=== PATIENT | male | born 1960 | race Caucasian/White ===

== ENCOUNTER 2024-01-14 23:12 | Emergency (ER) | payer OTHER, SELFPAY ==
[2024-01-14 23:20] VITALS: BP 147/83; PULSE 70; RESP 18; TEMP 36.8; O2SAT 98; BMI 35.9
--- NOTE | 2024-01-14 23:37 | ED_ITS ---
HPI - Extremity Problem 2 General: Chief complaint: Extremity Problem,Nontraumatic Stated complaint: left leg infection Time Seen by Provider: 01/14/24 23:37 History of Present Illness: 63-year-old male patient was started on clindamycin 300 mg 3 times a day for a cellulitis of the right lower leg. Patient comes in due to what he reports as increased redness to the leg. Patient appears nontoxic. Patient appears no acute distress. Patient reports no nausea or vomiting. Patient does report increased pain to the right lower leg. Related Data Home Medications Medication Instructions Recorded Confirmed lisinopril 5 mg tablet 5 mg PO DAILY 01/14/24 01/14/24 Previous Rx's Medication Instructions Recorded clindamycin HCl 300 mg capsule 600 mg (2 x 300 mg) PO Q8H 7 days 01/15/24 #42 caps hydrocodone 5 mg-acetaminophen 325 1 tab PO Q8H PRN pain #6 tabs 01/15/24 mg tablet ketorolac 10 mg tablet 10 mg PO Q6H PRN pain #10 tabs 01/15/24 Allergies Allergy/AdvReac Type Severity Reaction Status Date / Time codeine Allergy ALGY-Difficulty Verified 01/14/24 23:27 Breathing Review of Systems 2 General: Reports: 10 or more systems reviewed and unremarkable except in HPI and below Physical Exam 2 Const: COMMON NORMALS: alert HENMT: COMMON NORMALS: normocephalic HEAD & SCALP: normocephalic Neck/C-Spine: COMMON NORMALS: full ROM Resp: COMMON NORMALS: normal respiratory effort and clear to auscultation bilaterally AUSCULTATION: clear to auscultation bilaterally Cardio: COMMON NORMALS: regular rate RATE: regular rate GI: COMMON NORMALS: Soft to palpation PALPATION: Yes Soft to palpation : COMMON NORMALS: Yes normal external exam Extremity: COMMON NORMALS: normal to inspection Neuro: SENSORIUM/ORIENTATION: Yes alert Skin: COMMON NORMALS: turgor normal GENERAL SKIN EXAM: turgor normal Course 2 Vital Signs: Vital signs: Vital Signs Temperature 98.2 F 01/14/24 23:20 Pulse Rate 70 01/14/24 23:20 Respiratory Rate 18 01/14/24 23:20 Blood Pressure 147/83 01/14/24 23:20 Pulse Oximetry 98 01/14/24 23:20 Oxygen Delivery Me thod Room Air 01/14/24 23:20 MDM - Extremity (Nontraumatic) Medical Decision Making Patient came in today for concerns of redness to the right lower leg that was treated with antibiotics x 2 days. Patient was concerned that his redness was worse. On exam patient appears nontoxic. Patient appears no acute distress. Vital signs are normal. Differential diagnosis includes not limited to cellulitis, wound infection, DVT. Redness is localized to an area of the gaiter region of the lower leg. No swelling is noted to the foot. Patient does have some varicosities in that area. Laboratory values no CBC that is normal, CMP is unremarkable except for some elevated bilirubin. Lactic is normal. Patient was given 900 mg of clindamycin x 1. Patient was increased his dose of clindamycin 600 mg 3 times a day for the next 7 days. Patient was recommended to elevate the leg. And follow-up with primary care for further instructions. Recommend return to the ER for worsening symptoms such as nausea and vomiting, uncontrolled fever or pain. Lab Data 01/15/24 00:09 01/15/24 00:09 Laboratory Results WBC 6.01 10^3/uL (3.29-11.43) 01/15/24 00:09 RBC 4.19 10^6/uL (3.85-5.65) 01/15/24 00:09 Hgb 13.80 g/dL (11.27-16.99) 01/15/24 00:09 Hct 41.4 % (37-53) 01/15/24 00:09 MCV 98.8 fl (82-101) 01/15/24 00:09 MCH 32.9 pg (27-33) 01/15/24 00:09 MCHC 33.3 g/dL (30-55) 01/15/24 00:09 RDW 12.8 % (12.1-15.1) 01/15/24 00:09 Plt Count 81 10^3/cmm (157-399) L 01/15/24 00:09 MPV 11.2 fL (7.4-10.4) H 01/15/24 00:09 Neut % (Auto) 68.9 % 01/15/24 00:09 Lymph % (Auto) 18.1 % 01/15/24 00:09 [place] % (Auto) 11.1 % 01/15/24 00:09 Eos % (Auto) 1.3 % 01/15/24 00:09 Baso % (Auto) 0.3 % 01/15/24 00:09 Neut # (Auto) 4.13 10^3/uL (1.8-7.7) 01/15/24 00:09 Lymph # (Auto) 1.1 10^3/uL (0.8-4.8) 01/15/24 00:09 [place] # (Auto) 0.7 10^3/uL (0.2-0.9) 01/15/24 00:09 Eos # (Auto) 0.1 10^3/uL (0.0-0.8) 01/15/24 00:09 Baso # (Auto) 0.0 10^3/uL (0.0-0.1) 01/15/24 00:09 Nucleated RBC % (auto) 0 % 01/15/24 00:09 Nucleated RBCs # 0.0 /100WBC 01/15/24 00:09 Sodium 140 mmol/L (136-145) 01/15/24 00:09 Potassium 3.9 mmol/L (3.5-5.1) 01/15/24 00:09 Chloride 105 mmol/L (98-107) 01/15/24 00:09 Carbon Dioxide 25 mmol/L (22-29) 01/15/24 00:09 Anion Gap 13.9 (5-19) 01/15/24 00:09 BUN 12 mg/dL (8-23) 01/15/24 00:09 Creatinine 0.8 mg/dL (0.7-1.2) 01/15/24 00:09 GFR Calculation 98.0 mL/min (90-130) 01/15/24 00:09 Glucose 109 mg/dL (65-115) 01/15/24 00:09 Calculated Osmolality 290 mOsm/kg (285-295) 01/15/24 00:09 Lactic Acid 1.3 mmol/L (0.5-2.2) 01/15/24 00:09 Calcium 9.1 mg/dL (8.5-10.5) 01/15/24 00:09 Total Bilirubin 2.4 mg/dL (0.15-1.2) H 01/15/24 00:09 AST 59 U/L (0-40) H 01/15/24 00:09 ALT 41 U/L (0-41) 01/15/24 00:09 Alkaline Phosphatase 135 U/L (40-130) H 01/15/24 00:09 Total Protein 6.9 g/dL (6.6-8.7) 01/15/24 00:09 Albumin 3.5 g/dL (3.5-5.2) 01/15/24 00:09 Globulin 3.4 g/dL (1.3-4.6) 01/15/24 00:09 No radiology studies performed this visit Discharge Plan Discharge Patient Disposition: Home Clinical Impression: Cellulitis of left lower leg Condition: Stable Prescriptions: New clindamycin HCl 300 mg capsule 600 mg PO Q8H 7 Days Qty: 42 0RF hydrocodone-acetaminophen 5-325 mg tablet 1 tab PO Q8H PRN (Reason: pain) Qty: 6 0RF ketorolac 10 mg tablet 10 mg PO Q6H PRN (Reason: pain) Qty: 10 0RF Rx Instructions: maximum total duration of 5 days from all oral, intranasal, or parenteral formulations No Action lisinopril 5 mg Tablet 5 mg PO DAILY Discharge Orders: Discharge ED (Routine); Ordered 01/15/24 Ordered By: Brandon Fisher Discharge Diet: Usual diet Discharge Activity: Increase activity as tolerated Patient Instructions: Cellulitis (ED) Activity Restrictions/Additional Instructions: Rest and elevate leg. Take antibiotic clindamycin 600 mg 3 times a day for the next 7 days. You should start seeing improvement over the next 2 to 3 days. If you start running a fever greater than 100.4, start becoming nauseous and not being able to hold down fluids, or have new concerns return to the ER. Otherwise, follow-up with primary care in 5 days. Coding Level of Care Code ED Coder Operator for Eliot Guajardo
[2024-01-14 23:57] VITALS: BP 189/85; PULSE 71; O2SAT 98
[2024-01-15] MEDS: clindamycin 900 MG/50 ML PREMIX 100 MG IV (00:21)
[2024-01-15 00:27] VITALS: BP 164/124; PULSE 73; O2SAT 98
[2024-01-15 00:30] VITALS: BP 164/124; PULSE 73; O2SAT 98
[2024-01-15 00:35] LABS: Basophils % 0.3 %; Eosinophils # 0.1 10^3/uL (0.0-0.8); Eosinophils % 1.3 %; Hematocrit 41.4 % (37-53); Lymphocytes # 1.1 10^3/uL (0.8-4.8); Lymphocytes % 18.1 %; Mean Corpuscular HGB Conc 33.3 g/dL (30-55); Mean Corpuscular Hemoglobin 32.9 pg (27-33); Mean Corpuscular Volume 98.8 fl (82-101); Mean Platelet Volume 11.2 fL (7.4-10.4); Monocytes # 0.7 10^3/uL (0.2-0.9); Monocytes % 11.1 %; Neutrophils # 4.13 10^3/uL (1.8-7.7); Neutrophils % 68.9 %; Nucleated Red Blood Cells % 0 %; Platelet Count 81 10^3/cmm (157-399); Red Blood Count 4.19 10^6/uL (3.85-5.65); Red Cell Distribution Width 12.8 % (12.1-15.1); White Blood Count 6.01 10^3/uL (3.29-11.43)
[2024-01-15 00:42] LABS: Lactic Sepsis W/Reflex 1.3 mmol/L (0.5-2.2)
[2024-01-15 00:43] LABS: Alanine Aminotransferase 41 U/L (0-41); Albumin Level 3.5 g/dL (3.5-5.2); Alkaline Phosphatase 135 U/L (40-130); Aspartate Amino Transferase 59 U/L (0-40); Blood Urea Nitrogen 12 mg/dL (8-23); Calcium 9.1 mg/dL (8.5-10.5); Carbon Dioxide 25 mmol/L (22-29); Chloride 105 mmol/L (98-107); Creatinine Clr Calc Pharmacy 120.7364; Globulin 3.4 g/dL (1.3-4.6); Glucose 109 mg/dL (65-115); Osmolality Calculated 290 mOsm/kg (285-295); Sodium 140 mmol/L (136-145); Total Bilirubin 2.4 mg/dL (0.15-1.2); Total Protein 6.9 g/dL (6.6-8.7)
[2024-01-15 00:44] LABS: Anion Gap 13.9 (5-19); Potassium 3.9 mmol/L (3.5-5.1)
[2024-01-15] MEDS: tetanus-dipt-pertussis 0.5 mL SDV IM (00:56)
[2024-01-15] MEDS: ketorolac 30 mg/mL INJ 15 MG IVP (00:57)
[2024-01-15 01:00] VITALS: BP 163/76; PULSE 76; O2SAT 98
[2024-01-15] MEDS: HYDROcodone-acetaminophen 5-325 mg Tablet 1 TAB PO (01:13)
[2024-01-15 01:23] VITALS: BP 141/74; PULSE 75; TEMP 36.9; O2SAT 97
== END 2024-01-15 01:28 | disposition home or self-care (01) ==
PROVIDERS: Emergency Provider Nurse Practitioner Family
DX: L03.116 Cellulitis of left lower limb (principal); Z23 Encounter for immunization
CPT/HCPCS: 80053; 83605; 85025; 87040; 87150; 87205; 90471; 90715; 96365; 96375; 99284; J1885; J3490

== ENCOUNTER 2024-01-17 14:43 | Inpatient (IN) | payer OTHER, SELFPAY ==
[2024-01-17] VITALS (8 sets, daily range): BP systolic 140–183; BP diastolic 64–78; PULSE 72–91; RESP 15–18; TEMP 36.4–36.9; O2SAT 94–97; BMI 35.9; BMI 35.6
[2024-01-17 15:36] LABS: Basophils # 0.1 10^3/uL (0.0-0.1); Basophils % 0.8 %; Eosinophils # 0.1 10^3/uL (0.0-0.8); Eosinophils % 0.9 %; Hematocrit 44.9 % (37-53); Lymphocytes # 1.5 10^3/uL (0.8-4.8); Lymphocytes % 19.6 %; Mean Corpuscular HGB Conc 34.3 g/dL (30-55); Mean Corpuscular Hemoglobin 33.3 pg (27-33); Mean Platelet Volume 11.2 fL (7.4-10.4); Monocytes # 0.8 10^3/uL (0.2-0.9); Monocytes % 10.4 %; Neutrophils # 5.33 10^3/uL (1.8-7.7); Neutrophils % 67.9 %; Nucleated Red Blood Cells % 0 %; Platelet Count 123 10^3/cmm (157-399); Red Blood Count 4.63 10^6/uL (3.85-5.65); Red Cell Distribution Width 12.5 % (12.1-15.1); White Blood Count 7.85 10^3/uL (3.29-11.43)
[2024-01-17 15:38] LABS: Erythrocyte Sedimentation Rate 27 mm/hr (0-10)
--- NOTE | 2024-01-17 17:46 | ED_ITS ---
Documented by User: Kishor Perrin DO 01/18/24 06:03 HPI - Extremity Problem 2 General: Chief complaint: Extremity Injury, Lower Stated complaint: pain to left leg Time Seen by Provider: 01/17/24 17:38 History of Present Illness: 61-year-old male with a history of impai red glucose tolerance presents emergency room with complaint of possible sepsis. He was seen today on a telehealth visit they are worried that he may be getting worse. He was seen last week for cellulitis on his left lower leg he was started on clindamycin on an outpatient basis he returned 3 days ago to the ER was given an IV dose of clindamycin to his home blood cultures done at that time grew coag negative staph species. He is not running a fever at this time. He has a normal white count at the last visit. Associated symptoms: Deny chest pain or fever(s) Related Data Home Medications Medication Instructions Recorded Confirmed lisinopril 5 mg tablet 5 mg PO DAILY 01/14/24 01/17/24 Previous Rx's Medication Instructions Recorded clindamycin HCl 300 mg capsule 600 mg (2 x 300 mg) PO Q8H 7 days 01/15/24 #42 caps hydrocodone 5 mg-acetaminophen 325 1 tab PO Q8H PRN pain #6 tabs 01/15/24 mg tablet ketorolac 10 mg tablet 10 mg PO Q6H PRN pain #10 tabs 01/15/24 Allergies Allergy/AdvReac Type Severity Reaction Status Date / Time codeine Allergy ALGY-Difficulty Verified 01/17/24 14:54 Breathing Review of Systems 2 Const: Denies: fever(s) or chills Card: Denies: chest pain Resp: Denies: dyspnea GI: Denies: abdominal pain : Denies: dysuria, urinary frequency or urinary urgency Musc: Denies: neck pain or back pain Skin/Breast: Reports: erythema, skin pain and skin tenderness Physical Exam 2 Const: COMMON NORMALS: no acute distress GENERAL APPEARANCE: cooperative and comfortable ORIENTATION/CONSCIOUSNESS: Yes awake, Yes oriented to person, Yes oriented to place and Yes oriented to time HENMT: COMMON NORMALS: normocephalic, atraumatic and hearing grossly normal bilaterally HEAD & SCALP: normocephalic and atraumatic Resp: COMMON NORMALS: normal respiratory effort, No retractions, No use of accessory muscles and clear to auscultation bilaterally AUSCULTATION: clear to auscultation bilaterally Cardio: COMMON NORMALS: regular rate, regular rhythm and No murmurs present (Cardio) RATE: regular rate RHYTHM: regular rhythm GI: COMMON NORMALS: Soft to palpation and No hepatosplenomegaly present A USCULTATION: Yes normoactive bowel sounds PALPATION: Yes Soft to palpation, No Tenderness to palpation present (GI), No Guarding due to palpation present (GI) and Yes No hepatosplenomegaly present Extremity: COMMON NORMALS: normal to inspection, capillary refill normal, no clubbing, cyanosis or edema, no calf tenderness and no pedal edema Neuro: SENSORIUM/ORIENTATION: Yes oriented to person, Yes oriented to place and Yes oriented to time Skin: OTHER: Mild redness erythema few small pustules noted and is retracted from the lines marked from 3 days ago. No drainage no palpable abscess Course 2 Vital Signs: Vital signs: Vital Signs Temperature 98.1 F 01/18/24 04:00 Pulse Rate 82 01/18/24 05:30 Respiratory Rate 20 H 01/18/24 04:00 Blood Pressure 121/59 01/18/24 04:00 Pulse Oximetry 93 01/18/24 04:00 Oxygen Delivery Me thod Room Air 01/18/24 04:00 MDM - Extremity (Nontraumatic) Medical Decision Making Previous culture 1 of 4 bottles grew out coag negative staph. May be contaminant may be true pathogen will need second set of blood cultures to clear. Clinically appears to be responding to the clindamycin to this point. Care signed out to Dr. Sahni at change of shift. See final notes for diagnosis and disposition. Patient tarted clindamycin 300 mg 3 times a day 5 days ago, 4 days ago was bumped up to 600 mg 3 times a day and the patient also got a 900 mg IV dose. There been getting more painful and more reddened with pustules. Lab work was reviewed, this case was discussed with Dr. Barnard we will place the patient on Vanco and Zosyn get a CT scan of the area to rule out abscess and place the patient inpatient. Lab Data 01/18/24 04:50 01/18/24 04:50 Radiology Impressions Venous Duplex 01/17/24 17:55 IMPRESSION: No sonographic evidence of deep vein thrombosis. Lower Extremity CT 01/17/24 20:27 IMPRESSION: 1. Mild to moderate subcutaneous edema with overlying skin thickening along the anterior aspect of the mid to distal lower leg, compatible with cellulitis. No organized collection. No soft tissue gas. No acute osseous abnormality. 2. Additional findings, as above. Laboratory Results WBC 7.85 10^3/uL (3.29-11.43) 01/17/24 15:14 RBC 4.63 10^6/uL (3.85-5.65) 01/17/24 15:14 Hgb 15.40 g/dL (11.27-16.99) 01/17/24 15:14 Hct 44.9 % (37-53) 01/17/24 15:14 MCV 97.0 fl (82-101) 01/17/24 15:14 MCH 33.3 pg (27-33) H 01/17/24 15:14 MCHC 34.3 g/dL (30-55) 01/17/24 15:14 RDW 12.5 % (12.1-15.1) 01/17/24 15:14 Plt Count 123 10^3/cmm (157-399) L 01/17/24 15:14 MPV 11.2 fL (7.4-10.4) H 01/17/24 15:14 Neut % (Auto) 67.9 % 01/17/24 15:14 Lymph % (Auto) 19.6 % 01/17/24 15:14 [place] % (Auto) 10.4 % 01/17/24 15:14 Eos % (Auto) 0.9 % 01/17/24 15:14 Baso % (Auto) 0.8 % 01/17/24 15:14 Neut # (Auto) 5.33 10^3/uL (1.8-7.7) 01/17/24 15:14 Lymph # (Auto) 1.5 10^3/uL (0.8-4.8) 01/17/24 15:14 [place] # (Auto) 0.8 10^3/uL (0.2-0.9) 01/17/24 15:14 Eos # (Auto) 0.1 10^3/uL (0.0-0.8) 01/17/24 15:14 Baso # (Auto) 0.1 10^3/uL (0.0-0.1) 01/17/24 15:14 Nucleated RBC % (auto) 0 % 01/17/24 15:14 Nucleated RBCs # 0.0 /100WBC 01/17/24 15:14 ESR 27 mm/hr (0-10) H 01/17/24 15:14 Sodium 135 mmol/L (136-145) L 01/17/24 15:14 Potassium 4.4 mmol/L (3.5-5.1) 01/17/24 15:14 Chloride 99 mmol/L (98-107) 01/17/24 15:14 Carbon Dioxide 25 mmol/L (22-29) 01/17/24 15:14 Anion Gap 15.4 (5-19) 01/17/24 15:14 BUN 16 mg/dL (8-23) 01/17/24 15:14 Creatinine 0.9 mg/dL (0.7-1.2) 01/17/24 15:14 GFR Calculation 85.5 mL/min (90-130) L 01/17/24 15:14 Glucose 103 mg/dL (65-115) 01/17/24 15:14 Calculated Osmolality 281 mOsm/kg (285-295) L 01/17/24 15:14 Calcium 9.9 mg/dL (8.5-10.5) 01/17/24 15:14 Total Bilirubin 4.2 mg/dL (0.15-1.2) H 01/17/24 15:14 AST 47 U/L (0-40) H 01/17/24 15:14 ALT 39 U/L (0-41) 01/17/24 15:14 Alkaline Phosphatase 162 U/L (40-130) H 01/17/24 15:14 Total Protein 7.3 g/dL (6.6-8.7) 01/17/24 15:14 Albumin 3.5 g/dL (3.5-5.2) 01/17/24 15:14 Globulin 3.8 g/dL (1.3-4.6) 01/17/24 15:14 Discharge Plan Discharge Patient Disposition: Admitted As Inpatient Admit Provider: Seng Cade Clinical Impression: Cellulitis of left lower leg Condition: Stable Coding Level of Care Code ED Luncheonette Operator for Chg Fwd Documented by User: Cas Sahni DO 01/17/24 20:46 HPI - Extremity Problem 2 General: Chief complaint: Extremity Injury, Lower Stated complaint: pain to left leg Time Seen by Provider: 01/17/24 17:38 Related Data Home Medications Medication Instructions Recorded Confirmed lisinopril 5 mg tablet 5 mg PO DAILY 01/14/24 01/17/24 Previous Rx's Medication Instructions Recorded clindamycin HCl 300 mg capsule 600 mg (2 x 300 mg) PO Q8H 7 days 01/15/24 #42 caps hydrocodone 5 mg-acetaminophen 325 1 tab PO Q8H PRN pain #6 tabs 01/15/24 mg tablet ketorolac 10 mg tablet 10 mg PO Q6H PRN pain #10 tabs 01/15/24 Allergies Allergy/AdvReac Type Severity Reaction Status Date / Time codeine Allergy ALGY-Difficulty Verified 01/17/24 14:54 Breathing Course 2 Vital Signs: Vital signs: Vital Signs Temperature 98.1 F 01/18/24 04:00 Pulse Rate 82 01/18/24 05:30 Respiratory Rate 20 H 01/18/24 04:00 Blood Pressure 121/59 01/18/24 04:00 Pulse Oximetry 93 01/18/24 04:00 Oxygen Delivery Me thod Room Air 01/18/24 04:00 MDM - Extremity (Nontraumatic) Medical Decision Making Care signed out to Dr. Sahni at change of shift. See final notes for diagnosis and disposition. Patient tarted clindamycin 300 mg 3 times a day 5 days ago, 4 days ago was bumped up to 600 mg 3 times a day and the patient also got a 900 mg IV dose. There been getting more painful and more reddened with pustules. Lab work was reviewed, this case was discussed with Dr. Barnard we will place the patient on Vanco and Zosyn get a CT scan of the area to rule out abscess and place the patient inpatient. Lab Data 01/18/24 04:50 01/18/24 04:50 Radiology Impressions Venous Duplex 01/17/24 17:55 IMPRESSION: No sonographic evidence of deep vein thrombosis. Lower Extremity CT 01/17/24 20:27 IMPRESSION: 1. Mild to moderate subcutaneous edema with overlying skin thickening along the anterior aspect of the mid to distal lower leg, compatible with cellulitis. No organized collection. No soft tissue gas. No acute osseous abnormality. 2. Additional findings, as above. Laboratory Results WBC 7.85 10^3/uL (3.29-11.43) 01/17/24 15:14 RBC 4.63 10^6/uL (3.85-5.65) 01/17/24 15:14 Hgb 15.40 g/dL (11.27-16.99) 01/17/24 15:14 Hct 44.9 % (37-53) 01/17/24 15:14 MCV 97.0 fl (82-101) 01/17/24 15:14 MCH 33.3 pg (27-33) H 01/17/24 15:14 MCHC 34.3 g/dL (30-55) 01/17/24 15:14 RDW 12.5 % (12.1-15.1) 01/17/24 15:14 Plt Count 123 10^3/cmm (157-399) L 01/17/24 15:14 MPV 11.2 fL (7.4-10.4) H 01/17/24 15:14 Neut % (Auto) 67.9 % 01/17/24 15:14 Lymph % (Auto) 19.6 % 01/17/24 15:14 [place] % (Auto) 10.4 % 01/17/24 15:14 Eos % (Auto) 0.9 % 01/17/24 15:14 Baso % (Auto) 0.8 % 01/17/24 15:14 Neut # (Auto) 5.33 10^3/uL (1.8-7.7) 01/17/24 15:14 Lymph # (Auto) 1.5 10^3/uL (0.8-4.8) 01/17/24 15:14 [place] # (Auto) 0.8 10^3/uL (0.2-0.9) 01/17/24 15:14 Eos # (Auto) 0.1 10^3/uL (0.0-0.8) 01/17/24 15:14 Baso # (Auto) 0.1 10^3/uL (0.0-0.1) 01/17/24 15:14 Nucleated RBC % (auto) 0 % 01/17/24 15:14 Nucleated RBCs # 0.0 /100WBC 01/17/24 15:14 ESR 27 mm/hr (0-10) H 01/17/24 15:14 Sodium 135 mmol/L (136-145) L 01/17/24 15:14 Potassium 4.4 mmol/L (3.5-5.1) 01/17/24 15:14 Chloride 99 mmol/L (98-107) 01/17/24 15:14 Carbon Dioxide 25 mmol/L (22-29) 01/17/24 15:14 Anion Gap 15.4 (5-19) 01/17/24 15:14 BUN 16 mg/dL (8-23) 01/17/24 15:14 Creatinine 0.9 mg/dL (0.7-1.2) 01/17/24 15:14 GFR Calculation 85.5 mL/min (90-130) L 01/17/24 15:14 Glucose 103 mg/dL (65-115) 01/17/24 15:14 Calculated Osmolality 281 mOsm/kg (285-295) L 01/17/24 15:14 Calcium 9.9 mg/dL (8.5-10.5) 01/17/24 15:14 Total Bilirubin 4.2 mg/dL (0.15-1.2) H 01/17/24 15:14 AST 47 U/L (0-40) H 01/17/24 15:14 ALT 39 U/L (0-41) 01/17/24 15:14 Alkaline Phosphatase 162 U/L (40-130) H 01/17/24 15:14 Total Protein 7.3 g/dL (6.6-8.7) 01/17/24 15:14 Albumin 3.5 g/dL (3.5-5.2) 01/17/24 15:14 Globulin 3.8 g/dL (1.3-4.6) 09/30/24 15:14 All radiology interpretation(s) finalized by discharge Discharge Plan Discharge Patient Disposition: Admitted As Inpatient Admit Provider: Seng Cade Clinical Impression: Cellulitis of left lower leg Condition: Stable Coding Level of Care Code ED Luncheonette Operator for Eliot Guajardo
--- NOTE | 2024-01-17 17:55 | USR_ITS ---
PROCEDURE INFORMATION: Exam: US Duplex Left Lower Extremity Veins, Limited Exam date and time: 01/17/2024 6:44 PM Age: 63 years old Clinical indication: Edema, localized; Lower extremity, left; Additional info: Leg pain swelling TECHNIQUE: Imaging protocol: Real-time duplex ultrasound of the left extremity with 2-D maddox scale, color Doppler flow and spectral waveform analysis including responses to compression and other maneuvers (when performed) with image documentation. Limited exam focused on the left lower extremity veins. COMPARISON: No relevant prior studies available. FINDINGS: Left deep veins: Unremarkable. The common femoral, femoral, proximal profunda femoral, popliteal, posterior tibial and peroneal veins are patent without thrombus. Normal compressibility, augmentation response and Doppler waveforms. Superficial veins: Greater saphenous vein at the saphenofemoral junction is patent without thrombus. Soft tissues: Unremarkable. US/CV venous duplex [facility] [id number] IMPRESSION: No sonographic evidence of deep vein thrombosis.
[2024-01-17 18:14] LABS: Alanine Aminotransferase 39 U/L (0-41); Albumin Level 3.5 g/dL (3.5-5.2); Alkaline Phosphatase 162 U/L (40-130); Anion Gap 15.4 (5-19); Aspartate Amino Transferase 47 U/L (0-40); Blood Urea Nitrogen 16 mg/dL (8-23); Calcium 9.9 mg/dL (8.5-10.5); Carbon Dioxide 25 mmol/L (22-29); Chloride 99 mmol/L (98-107); Creatinine Clr Calc Pharmacy 107.3213; Globulin 3.8 g/dL (1.3-4.6); Glomerular Filtration Rate 85.5 mL/min (90-130); Glucose 103 mg/dL (65-115); Osmolality Calculated 281 mOsm/kg (285-295); Potassium 4.4 mmol/L (3.5-5.1); Sodium 135 mmol/L (136-145); Total Bilirubin 4.2 mg/dL (0.15-1.2); Total Protein 7.3 g/dL (6.6-8.7)
--- NOTE | 2024-01-17 20:27 | CTR_ITS ---
PROCEDURE INFORMATION: Exam: CT Left Lower Extremity, Leg Exam date and time: 01/17/2024 9:08 PM Age: 63 years old Clinical indication: Cellulitis and difficulty in walking; Lower leg; Left; Additional info: Cellulitis vs abscess, berumen/calf area TECHNIQUE: Imaging protocol: CT of the left lower extremity with intravenous contrast was performed. Exam focused on the lower leg. Axial, coronal and sagittal reformatted images were created and reviewed. Radiation optimization: All CT scans at this facility use at least one of these dose optimization techniques: automated exposure control; mA and/or kV adjustment per patient size (includes targeted exams where dose is matched to clinical indication); or iterative reconstruction. Contrast material: OMNI 350; Contrast volume: 100 ml; Contrast route: INTRAVENOUS (IV); COMPARISON: US CV venous duplex [facility] [id number] 01/17/2024 6:44 PM RADIATION DOSE METRICS: Total DLP (mGy-cm): 485 FINDINGS: Bones/joints: Osteopenia. No CT evidence of acute fracture or dislocation. Mild lateral patellar subluxation. Alignment otherwise anatomic. Mild degenerative changes. No erosive or destructive change. No lytic or blastic lesion. No significant effusion. Soft tissues: Extensive subcutaneous varices. No intraluminal thrombus. No aneurysm. No high-grade stenosis or occlusion. Mild to moderate subcutaneous edema with overlying skin thickening along the anterior aspect of the mid to distal lower leg. No organized collection. Scattered intramuscular lipomata. Deep intramuscular fat planes grossly clear. No soft tissue gas. Enthesopathy at the patellar tendon origin and insertion. CT/CT lower leg [facility] con [id number] IMPRESSION: 1. Mild to moderate subcutaneous edema with overlying skin thickening along the anterior aspect of the mid to distal lower leg, compatible with cellulitis. No organized collection. No soft tissue gas. No acute osseous abnormality. 2. Additional findings, as above.
[2024-01-17] MEDS: piperacillin-tazobactam 3.375 GM in sodium chloride 0.9% (plus) 50 ML IV (21:00)
[2024-01-17] MEDS: iohexol 350 mg/mL 500 mL Btl (per mL) IV (21:12)
[2024-01-17] MEDS: vancomycin 1,000 MG in sodium chloride 0.9% 250 ML 250 MG IV (21:27)
[2024-01-17] MEDS: ondansetron 2 mg/ML SDV 2 mL 4 MG IVP (22:00)
[2024-01-17] MEDS: morphine 4 mg/mL SDV 1 mL IVP (22:02)
--- NOTE | 2024-01-17 22:42 | P.HP_ITS ---
Providers/Chief Complaint 2 Admitting Physician: Eleanor Wright MD Chief Complaint: pain to left leg History of Present Illness Joseph Aguila is a 63 year old male with a past medical history of hypertension, prediabetes,recently diagnosed liver cirrhosis, who is presenting to the emergency room today with left lower extremity cellulitis. 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 He was not aware of how he got the injury until his son pointed it out. There was some bloody discharge at the time however while the injury healed, he started developing left lower leg swelling. He was started on Clindamycin 300mg TID, then dose increased to 600mg TID. additionally he received a dose of clindamycin 900 mg IV in the emergency room on the . He has had chills at home, has not measured fever. Clindamycin has not made any improvement to his cellulitis. Review of Systems 2 General: Reports: 10 or more systems reviewed and unremarkable except in HPI and below Const: Denies: fever(s), chills or body aches Eyes: Denies: change in vision, blurry vision or photophobia ENMT: Reports: hoarseness; Denies: throat pain, enlarged tonsils, odynophagia or nasal congestion Card: Denies: chest pain, palpitations, irregular heart rhythm, edema, swelling of feet/ankles, lightheadedness, pre-syncope, dyspnea on exertion or orthopnea Resp: Denies: dyspnea, productive cough, non-productive cough, wheezing, stridor, pain on inspiration, change in phlegm color, hemoptysis or chest congestion GI: Denies: abdominal pain, nausea, vomiting, hematemesis, coffee ground emesis, dysphagia, heartburn, diarrhea, constipation, GI cramping, change in stool character, hematochezia or melena : Denies: flank pain, dysuria, urinary frequency, urinary urgency, urinary hesitancy or hematuria Musc: Denies: neck pain, back pain, extremity pain, joint swelling, joint warmth or deformity Neuro: Denies: headache(s), numbness in extremities, weakness in extremities, sensory changes, difficulty walking, frequent falls, dizziness, vertigo, behavioral changes, Slurred speech present or seizure-like activity Psych: Denies: anxiety, depression, suicidal ideation or homicidal ideation Endo: Denies: polyuria, polydipsia, tired all the time, cold intolerance or hot flashes Nolberto/Lymph: Denies: easy bruising or easy bleeding Medications/Allergies Home Medications Medication Instructions Recorded Confirmed Last Taken Type lisinopril 5 mg tablet 5 mg PO DAILY 01/14/24 01/17/24 01/17/24 History clindamycin HCl 300 mg capsule 600 mg (2 x 300 mg) PO Q8H 7 days 01/15/24 01/17/24 01/17/24 Rx #42 caps hydrocodone 5 mg-acetaminophen 325 1 tab PO Q8H PRN pain #6 tabs 01/15/24 01/17/24 01/17/24 Rx mg tablet ketorolac 10 mg tablet 10 mg PO Q6H PRN pain #10 tabs 01/15/24 01/17/24 01/17/24 Rx Allergies Allergy/AdvReac Type Severity Reaction Status Date / Time codeine Allergy ALGY-Difficulty Verified 01/17/24 14:54 Breathing Vitals/I&O/Wt Last Vital Signs Temp 98.5 F 01/17/24 22:11 Pulse 79 01/17/24 22:11 Resp 15 01/17/24 22:11 BP 169/64 01/17/24 22:11 Pulse Ox 94 01/17/24 22:11 O2 Del Method Room Air 01/17/24 22:29 01/17/24 01/17/24 01/17/24 06:59 14:59 22:59 Intake Total 300 / 300 Balance 300 / 300 Weight last 48 hrs Weight 112.548 kg Weight 113.398 kg Physical Exam 2 Narrative: General: No acute distress, AO x3 HEENT: PERRLA, pupils bilaterally equal and reactive, pallors not present Chest: Normal vesicular breath sounds, no added sounds, equal good air entry bilaterally CVS: S1-S2 regular, no murmurs, no tachycardia, no gallops, no rubs Abdomen: Soft, nontender, no organomegaly, bowel sounds present Neuro: No focal deficits, no facial deformity, AO x3, power 5/5 in all limbs Extremities: Left lower extremity cellulitis involving lower and mid calf extending both anteriorly and posteriorly. No swelling at ankle or knee joint. Foot is spared. Data 01/17/24 15:14 01/17/24 15:14 Micro: Microbiology 01/17/24 18:37 Blood Culture - Preliminary Blood SPECIMEN COLLECTED 01/17/24 18:25 Blood Culture - Preliminary Blood SPECIMEN COLLECTED Other data: NAME: Joseph Aguila LOC: U #: [id number] AGE/SX: 63/M ROOM: R E01/14/[address]: Brandon Fisher NP : 1960 BED: D IS: FAX #: STATUS: DEP ER TLOC: Spec #: [id number] [place]: 01/15/24-10 Status: RES Req #: [id number] Recd: 01/15/[address]: Brandon Fisher NP Src: Blood SpDesc: Ordered: Bcult Procedure Result Verified Site Blood Culture Preliminary 01/16/24-1709 1 OF 2 BOTTLES POSITIVE DIRECT GRAM STAIN: GRAM POSITIVE COCCI IN CLUSTERS IDENTIFICATION BY DIRECT PCR RESULTS TO FOLLOW Organism 1 Staphylococcus sp coag neg Growth 1 BOTTLE Gram Stain Charge Charge for Gram Stain CRITICAL RESULT YES/NO: YES CRITICAL CALLED BY: APOLINAR TO AND READ BACK BY: JUSTINA DATE: 01/16/24 TIME: 1708 A&P Assessment and plan (1) Cellulitis of left lower leg: Cellulitis of the left lower extremity after sustaining trauma about 2 weeks ago. Patient has recently been on treatment with oral and IV clindamycin without any improvement in symptoms. Admit to the hospital given failure of outpatient antibiotics. Start treatment with cefepime 2 g IV every 12 hours and renally dosed vancomycin for treatment. Monitor for improvement over the next [address] of the left lower extremity showing mild to moderate subcutaneous edema along the anterior aspect of the mid to distal lower leg compatible with cellulitis. No organized collection or underlying osseous abnormality noted. Lower extremity Doppler negative for DVT. (2) Bacteremia: From January 15, 2024 emergency room visit blood culture positive for coag negative staph. While this may represent a contaminant, with ongoing cellulitis will need to repeat blood cultures to ensure clearance and assess if this is a true pathogen in this case. (3) Thrombocytopenia: Platelet count 81,000 on January 16 2024, today noted to be at 1 23,000. This may be related to her recent diagnosis of liver cirrhosis. Will request records from primary care provider. Patient does not recall his baseline values at this time. No active bleeding at this time. (4) Hyperbilirubinemia: Total bilirubin at 4.2, increased from 2.4 on January 15, 2024. Unknown past baseline. Mildly elevated AST at 47, elevated alkaline phosphatase at 162. Will request records from primary care provider to a certain chronicity. Again may be related to her recent diagnosis of liver cirrhosis. Check viral hepatitis panel. Plan DVT ppx: Lovenox 40mg s/c daily, closely monitor for any bleeding or falling platelets Full code Attestations 2 Medical Necessity Statement*: Greater than 2 midnight stay is anticipated for IV antibiotics, recent failure of outpatient treatment, progression of cellulitis while on oral antibiotics Coding Level of Care Code Acute Code for Chg Fwd Moderate MDM includes number and complexity of problems actively addressed during encounter, amount and/or complexity of data reviewed/ordered and described risk of complication, morbidity or mortality of management as documented Diagnoses Cellulitis of left lower leg L03.116 Bacteremia R78.81 Thrombocytopenia D69.6 Hyperbilirubinemia E80.6
[2024-01-18] VITALS (9 sets, daily range): BP systolic 121–141; BP diastolic 59–76; PULSE 65–83; RESP 16–20; TEMP 36.7–36.9; O2SAT 91–95
[2024-01-18] MEDS: cefepime 2,000 MG in sodium chloride 0.9% (plus) 50 ML 100 MG IV ×2 (05:01→18:10)
[2024-01-18 05:11] LABS: Basophils # 0.1 10^3/uL (0.0-0.1); Eosinophils # 0.1 10^3/uL (0.0-0.8); Eosinophils % 1.3 %; Hematocrit 42.1 % (37-53); Lymphocytes # 1.4 10^3/uL (0.8-4.8); Lymphocytes % 20.5 %; Mean Corpuscular HGB Conc 33.7 g/dL (30-55); Mean Corpuscular Hemoglobin 33.3 pg (27-33); Mean Corpuscular Volume 98.6 fl (82-101); Mean Platelet Volume 11.2 fL (7.4-10.4); Monocytes # 0.9 10^3/uL (0.2-0.9); Monocytes % 12.9 %; Neutrophils # 4.49 10^3/uL (1.8-7.7); Neutrophils % 63.9 %; Nucleated Red Blood Cells % 0 %; Platelet Count 119 10^3/cmm (157-399); Red Blood Count 4.27 10^6/uL (3.85-5.65); Red Cell Distribution Width 12.6 % (12.1-15.1); White Blood Count 7.03 10^3/uL (3.29-11.43)
[2024-01-18 05:23] LABS: Estmated Average Glucose 114; Hemoglobin A1C 5.6 % (4.0-6.0); INR 1.08 (0.8-1.2)
[2024-01-18 05:27] LABS: Alanine Aminotransferase 31 U/L (0-41); Albumin Level 3.3 g/dL (3.5-5.2); Alkaline Phosphatase 150 U/L (40-130); Anion Gap 13.2 (5-19); Aspartate Amino Transferase 42 U/L (0-40); Blood Urea Nitrogen 16 mg/dL (8-23); Calcium 9.2 mg/dL (8.5-10.5); Carbon Dioxide 28 mmol/L (22-29); Chloride 102 mmol/L (98-107); Creatinine Clr Calc Pharmacy 107.2341; Globulin 3.1 g/dL (1.3-4.6); Glomerular Filtration Rate 85.5 mL/min (90-130); Glucose 100 mg/dL (65-115); Osmolality Calculated 289 mOsm/kg (285-295); Potassium 4.2 mmol/L (3.5-5.1); Sodium 139 mmol/L (136-145); Total Bilirubin 3.1 mg/dL (0.15-1.2); Total Protein 6.4 g/dL (6.6-8.7)
[2024-01-18 05:51] LABS: Hepatitis A Antibody IgM Non-Reactive (Nonreactive); Hepatitis B Core AB, Total Non-Reactive (Nonreactive); Hepatitis B Surface AB < 3.5 (11.5-1000); Hepatitis B Surface Antigen Non-Reactive (Nonreactive); Hepatitis C Virus Antibody Non-Reactive (Nonreactive)
--- NOTE | 2024-01-18 07:25 | PHA.VACGOAL ---
Vancomycin Goal - Goal Vancomycin Goal:: 15-20 mg/L Vancomycin Indication:: Other (Bacteremia/Cellulitis) - Therapy Current therapy:: Cefepime Day of therpy:: Day []of [] . Actual body weight (kg): 113.217 kg - Data Labs: WBC 7.03 10^3/uL (3.29-11.43) 01/18/24 04:50 RBC 4.27 10^6/uL (3.85-5.65) 01/18/24 04:50 Hgb 14.20 g/dL (11.27-16.99) 01/18/24 04:50 Hct 42.1 % (37-53) 01/18/24 04:50 MCV 98.6 fl (82-101) 01/18/24 04:50 MCH 33.3 pg (27-33) H 01/18/24 04:50 MCHC 33.7 g/dL (30-55) 01/18/24 04:50 RDW 12.6 % (12.1-15.1) 01/18/24 04:50 Sodium 139 mmol/L (136-145) 01/18/24 04:50 Potassium 4.2 mmol/L (3.5-5.1) 01/18/24 04:50 Chloride 102 mmol/L (98-107) 01/18/24 04:50 Carbon Dioxide 28 mmol/L (22-29) 01/18/24 04:50 Anion Gap 13.2 (5-19) 01/18/24 04:50 BUN 16 mg/dL (8-23) 01/18/24 04:50 Creatinine 0.9 mg/dL (0.7-1.2) 01/18/24 04:50 GFR Calculation 85.5 mL/min (90-130) L 01/18/24 04:50 Treatment plan:: new consult Regimen:: Telepharmacy dosing below: Comments: LAST DOSE: 1 GRAM AT 2236 PHARMACY TO DOSE CONSULT ORDERED BY HOWARD SEPULVEDA CRCL >100 ML/MIN 112.55 KG SSTI. ENTERED 1500 MG EVERY 12 HOURS FOR ~15 MG/KG Q12H PREDICTED TROUGH OF 13.28 MCG/ML. PLEASE FOLLOW THERAPY. Dose (mg): 1500 Frequency: Q12H First Dose Time and Date: 01/18/24 Indication: SSTI Follow up:: Laboratory Tests 01/17/24 01/18/24 15:14 04:50 Creatinine 0.9 0.9 Renal function stable at 0.9 mg/dL. T1/2 calculated at 9 hours. Continue current dosing of 1500 mg q12h. Trough to be ordered before 4th maintenance dose. Pharmacy will monitor daily.
[2024-01-18] MEDS: enoxaparin 40 mg/0.4 mL Syringe SUBCUT (09:11)
[2024-01-18] MEDS: vancomycin 1,500 MG/300 ML PIGGYBACK 200 MG IV ×2 (09:11→21:10)
[2024-01-18] MEDS: pantoprazole DR 40 mg Tablet PO (09:11)
[2024-01-18] MEDS: lisinopril 5 mg Tablet PO (09:11)
[2024-01-18] MEDS: HYDROcodone-acetaminophen 5-325 mg Tablet 1 TAB PO (09:11)
--- NOTE | 2024-01-18 09:26 | PC.CHAP ---
Pastoral Care Encounter/Spiritual Assessment Type of Contact [] Declined ampoule examiner visit [] Patient/Family/Request visit [] Outpatient visit [] Follow-up visit [] Physician referral [] Code/Alert [] Routine visit [] Staff referral [] Actively dying [x] Patient sleeping [] Family support [] [] Out of room [] Palliative care [] [] Receiving care in room [] Pre-surgical visit [] Trauma [] Long length of stay [] ICU visit [] Other: Relational/Emotional Strength [] Patient feels connected with others/family/visitors/staff [] Distress [] Loneliness/isolation [] Abandonment Spirituality of Patient [] Person of Nivia [] Attends Buddhist of their Nivia [] Believes in Prayer [] Reads Bible or Yazidism materials [] There are Spiritual issues to be addressed Brick Veneer Maker Interventions [] Prayer [] Active listening [] Non-anxious presence [] Spiritual/emotional support [] Crisis/trauma care [] Spiritual counseling [] Bereavement support [] Provided bereavement packet [] Provided Bible/devotional materials [] Provided toy/stuffed animal, coloring book to patient or family member [] Provided Communion [] Anointing/[place] [] Salvation [] Completed spiritual assessment [] Other: Impact on Illness or Injury [] Angry [] Fearful [] Anxious [] Often cries [] Exhaustion [] Unable to work [] Unable to attend islam [] Unable to walk/stand [] Unable to read [] Unable to drive [] Unable to eat/drink [] Unable to sleep [] Unable to be with family [] Patient intubated [] Other: Summary Time spent with patient
[2024-01-18 11:48] LABS: Procalcitonin 0.13 ng/mL (0-0.5); Thyroid Stimulating Hormone 2.75 uIU/mL (0.27-4.20); Vitamin B12 428 pg/mL (232-1245)
[2024-01-18 11:59] LABS: Iron 63 ug/dL (59-158)
[2024-01-18 12:03] LABS: Total Iron Binding Capacity 251 mcg/dl; Unsaturated Iron Binding 188 ug/dL (112-347)
[2024-01-18 12:17] LABS: MRSA PCR OZH (swab) NOT DETECTED (Negative)
--- NOTE | 2024-01-18 13:36 | P.PN_ITS ---
Subjective 2 Subjective: Ordered overnight. Today morning on examination patient lying comfortably in bed. Denies any nausea vomiting, headache. States redness seems to be decreasing but still has pain on standing up. Denies any new complaints otherwise. Vitals/I&O/Wt Last Vital Signs Temp 98.1 F 01/18/24 11:38 Pulse 65 01/18/24 11:38 Resp 17 01/18/24 11:38 BP 127/71 01/18/24 11:38 Pulse Ox 93 01/18/24 11:38 O2 Del Method Room Air 01/18/24 11:38 01/17/24 01/18/24 01/18/24 22:59 06:59 14:59 Intake Total 300 / 300 400 / 700 540 / 540 Balance 300 / 300 400 / 700 540 / 540 Weight last 48 hrs Weight 113.217 kg Weight 112.548 kg Weight 113.398 kg Physical Exam 2 Narrative: General: No acute distress, AO x3 HEENT: PERRLA, pupils bilaterally equal and reactive, pallors not present Chest: Normal vesicular breath sounds, no added sounds, equal good air entry bilaterally CVS: S1-S2 regular, no murmurs, no tachycardia, no gallops, no rubs Abdomen: Soft, nontender, no organomegaly, bowel sounds present Neuro: No focal deficits, no facial deformity, AO x3, power 5/5 in all limbs Extremities: Left lower extremity cellulitis involving lower and mid calf extending both anteriorly and posteriorly. No swelling at ankle or knee joint. Foot is spared. Data 01/18/24 04:50 01/18/24 04:50 Micro: Microbiology 01/17/24 18:37 Blood Culture - Preliminary Blood SPECIMEN COLLECTED 01/17/24 18:25 Blood Culture - Preliminary Blood SPECIMEN COLLECTED A&P Assessment and plan (1) Cellulitis of left lower leg: Cellulitis of the left lower extremity after sustaining trauma about 2 weeks ago. Failure to outpatient treatment with clindamycin. For now continue with IV cefepime and vancomycin. Follow-up blood culture. Check MRSA swab. A1c 5.6 Monitor for improvement over the next [address] of the left lower extremity showing mild to moderate subcutaneous edema along the anterior aspect of the mid to distal lower leg compatible with cellulitis. No organized collection or underlying osseous abnormality noted. Lower extremity Doppler negative for DVT. (2) Bacteremia: From January 15, 2024 emergency room visit blood culture positive for coag negative staph. While this may represent a contaminant, with ongoing cellulitis will need to repeat blood cultures to ensure clearance and assess if this is a true pathogen in this case. (3) Thrombocytopenia: Platelet count 81,000 on January 16 2024, today noted to be at 1 23,000. Most likely in setting of liver cirrhosis. No active bleeding at this time. (4) Hyperbilirubinemia: Total bilirubin at 4.2, increased from 2.4 on January 15, 2024. Unknown past baseline. Mildly elevated AST at 47, elevated alkaline phosphatase at 162. Will request records from primary care provider to a certain chronicity. Again may be related to her recent diagnosis of liver cirrhosis. Appreciate viral hepatitis panel. Plan DVT ppx: Lovenox 40mg s/c daily, closely monitor for any bleeding or falling platelets Cardiac diet Full code Attestations 2 Medical Necessity Statement*: Requires further hospitalization for management of cellulitis of left lower leg with failure to outpatient treatment in a patient with liver cirrhosis, bacteremia Diagnoses Cellulitis of left lower leg L03.116 Bacteremia R78.81 Thrombocytopenia D69.6 Hyperbilirubinemia E80.6
[2024-01-18] MEDS: morphine 4 mg/mL SDV 1 mL 2 MG IVP (15:25)
[2024-01-19] VITALS (12 sets, daily range): BP systolic 113–152; BP diastolic 60–75; PULSE 63–73; RESP 15–20; TEMP 36.6–37.1; O2SAT 91–96
[2024-01-19] MEDS: morphine 4 mg/mL SDV 1 mL 2 MG IVP ×2 (00:57→12:43)
[2024-01-19] MEDS: cefepime 2,000 MG in sodium chloride 0.9% (plus) 50 ML 100 MG IV ×2 (05:06→17:49)
[2024-01-19 05:51] LABS: Basophils # 0.1 10^3/uL (0.0-0.1); Basophils % 1.1 %; Eosinophils # 0.2 10^3/uL (0.0-0.8); Eosinophils % 2.4 %; Hematocrit 42.4 % (37-53); Lymphocytes # 1.2 10^3/uL (0.8-4.8); Lymphocytes % 18.9 %; Mean Corpuscular HGB Conc 33.3 g/dL (30-55); Mean Corpuscular Volume 99.3 fl (82-101); Mean Platelet Volume 10.8 fL (7.4-10.4); Monocytes # 0.7 10^3/uL (0.2-0.9); Monocytes % 11.2 %; Neutrophils # 4.05 10^3/uL (1.8-7.7); Neutrophils % 66.1 %; Nucleated Red Blood Cells % 0 %; Platelet Count 117 10^3/cmm (157-399); Red Blood Count 4.27 10^6/uL (3.85-5.65); Red Cell Distribution Width 12.6 % (12.1-15.1); White Blood Count 6.14 10^3/uL (3.29-11.43)
[2024-01-19 06:12] LABS: Alanine Aminotransferase 28 U/L (0-41); Albumin Level 3.4 g/dL (3.5-5.2); Alkaline Phosphatase 156 U/L (40-130); Anion Gap 10.9 (5-19); Aspartate Amino Transferase 42 U/L (0-40); Blood Urea Nitrogen 18 mg/dL (8-23); Calcium 8.8 mg/dL (8.5-10.5); Carbon Dioxide 26 mmol/L (22-29); Chloride 103 mmol/L (98-107); Creatinine Clr Calc Pharmacy 107.3213; Globulin 3.3 g/dL (1.3-4.6); Glomerular Filtration Rate 85.5 mL/min (90-130); Glucose 105 mg/dL (65-115); Osmolality Calculated 284 mOsm/kg (285-295); Potassium 3.9 mmol/L (3.5-5.1); Sodium 136 mmol/L (136-145); Total Bilirubin 2.1 mg/dL (0.15-1.2); Total Protein 6.7 g/dL (6.6-8.7)
[2024-01-19 06:15] LABS: Chol HDL Ratio 3.86 mg/dL (1.0-5.00); Cholesterol 166 mg/dL (0-200); HDL Cholesterol 43 mg/dL (60-100); LDL Cholesterol Calculated 96 mg/dL (50-129); Magnesium 1.9 mg/dL (1.7-2.3); Triglycerides 133 mg/dL (0-150); VLDL Cholestrol Calculation 27 mg/dL (0-30)
[2024-01-19 06:29] LABS: Folate Level 7.7 ng/mL (4.5-32.2)
[2024-01-19] MEDS: HYDROcodone-acetaminophen 5-325 mg Tablet 1 TAB PO ×2 (08:20→18:11)
[2024-01-19] MEDS: lisinopril 5 mg Tablet PO (08:22)
[2024-01-19] MEDS: enoxaparin 40 mg/0.4 mL Syringe SUBCUT (08:22)
[2024-01-19] MEDS: pantoprazole DR 40 mg Tablet PO (08:22)
--- NOTE | 2024-01-19 08:27 | PC.CHAP ---
Pastoral Care Encounter/Spiritual Assessment Type of Contact [] Declined mental hygiene consultant visit [] Patient/Family/Request visit [] Outpatient visit [] Follow-up visit [] Physician referral [] Code/Alert [] Routine visit [] Staff referral [] Actively dying [x] Patient sleeping [] Family support [] [] Out of room [] Palliative care [] [] Receiving care in room [] Pre-surgical visit [] Trauma [] Long length of stay [] ICU visit [] Other: Relational/Emotional Strength [] Patient feels connected with others/family/visitors/staff [] Distress [] Loneliness/isolation [] Abandonment Spirituality of Patient [] Person of Nivia [] Attends Muslim of their Nivia [] Believes in Prayer [] Reads Bible or Uatsdin materials [] There are Spiritual issues to be addressed Galvanizing Pot Runner Interventions [] Prayer [] Active listening [] Non-anxious presence [] Spiritual/emotional support [] Crisis/trauma care [] Spiritual counseling [] Bereavement support [] Provided bereavement packet [] Provided Bible/devotional materials [] Provided toy/stuffed animal, coloring book to patient or family member [] Provided Communion [] Anointing/[place] [] Salvation [] Completed spiritual assessment [] Other: Impact on Illness or Injury [] Angry [] Fearful [] Anxious [] Often cries [] Exhaustion [] Unable to work [] Unable to attend druze [] Unable to walk/stand [] Unable to read [] Unable to drive [] Unable to eat/drink [] Unable to sleep [] Unable to be with family [] Patient intubated [] Other: Summary Time spent with patient
[2024-01-19] MEDS: vancomycin 1,500 MG/300 ML PIGGYBACK 200 MG IV (10:33)
--- NOTE | 2024-01-19 11:06 | P.PN_ITS ---
Subjective 2 Subjective: No acute events overnight. Patient denies any nausea, vomiting, headache. Overall cellulitis seem to be improving. Patient complaining of pain in the foot and the leg especially in the [place] area on standing up or having his legs hanging up in the air. Has remained hemodynamically stable and afebrile. Vitals/I&O/Wt Last Vital Signs Temp 97.8 F 01/19/24 07:38 Pulse 64 01/19/24 07:38 Resp 15 01/19/24 07:38 BP 128/60 01/19/24 07:38 Pulse Ox 94 01/19/24 07:38 O2 Del Method Room Air 01/19/24 07:38 01/18/24 01/19/24 01/19/24 22:59 06:59 14:59 Intake Total 590 / 1130 50 / 1180 300 / 300 Output Total 300 / 300 700 / 1000 Balance 290 / 830 -650 / 180 300 / 300 Weight last 48 hrs Weight 113.398 kg Weight 113.217 kg Weight 112.548 kg Weight 113.398 kg Physical Exam 2 Narrative: General: No acute distress, AO x3 HEENT: PERRLA, pupils bilaterally equal and reactive, pallors not present Chest: Normal vesicular breath sounds, no added sounds, equal good air entry bilaterally CVS: S1-S2 regular, no murmurs, no tachycardia, no gallops, no rubs Abdomen: Soft, nontender, no organomegaly, bowel sounds present Neuro: No focal deficits, no facial deformity, AO x3, power 5/5 in all limbs Extremities: Left lower extremity cellulitis involving lower and mid calf extending both anteriorly and posteriorly. No swelling at ankle or knee joint. Foot is spared. Data 01/19/24 05:09 01/19/24 05:09 Micro: Microbiology 01/17/24 18:37 Blood Culture - Preliminary Blood NEGATIVE TO DATE 01/17/24 18:25 Blood Culture - Preliminary Blood NEGATIVE TO DATE A&P Assessment and plan (1) Cellulitis of left lower leg: Cellulitis of the left lower extremity after sustaining trauma about 2 weeks ago. Failure to outpatient treatment with clindamycin. Follow-up blood culture. MRSA swab negative. A1c 5.6 Monitor for improvement over the next [address] of the left lower extremity showing mild to moderate subcutaneous edema along the anterior aspect of the mid to distal lower leg compatible with cellulitis. No organized collection or underlying osseous abnormality noted. Lower extremity Doppler negative for DVT. Continue with IV cefepime. Discontinue vancomycin. (2) Bacteremia: From January 15, 2024 emergency room visit blood culture positive for coag negative staph. While this may represent a contaminant, with ongoing cellulitis will need to repeat blood cultures to ensure clearance and assess if this is a true pathogen in this case. Repeat blood cultures on this admission so far negative. (3) Thrombocytopenia: Patient found stable. Most likely in setting of liver cirrhosis. No active bleeding at this time. (4) Hyperbilirubinemia: Total bilirubin at 4.2, increased from 2.4 on January 15, 2024. Unknown past baseline. Mildly elevated AST at 47, elevated alkaline phosphatase at 162. Will request records from primary care provider to a certain chronicity. Again may be related to her recent diagnosis of liver cirrhosis. Appreciate viral hepatitis panel. Plan Leg pain: Most on standing up or flexing the ankle joint. Not in proportion with the cellulitis. Cellulitis overall seems to be improving. No collection or swelling seen on CT imaging. No fracture seen on CT imaging. For now we will do x-ray of the leg and the foot for further evaluation. Physical therapy evaluation. Possible need of cam boot DVT ppx: Lovenox 40mg s/c daily, closely monitor for any bleeding or falling platelets Cardiac diet Full code Attestations 2 Medical Necessity Statement*: Requires further hospitalization for management of left leg cellulitis leading to severe left leg pain Diagnoses Cellulitis of left lower leg L03.116 Bacteremia R78.81 Thrombocytopenia D69.6 Hyperbilirubinemia E80.6
--- NOTE | 2024-01-19 11:09 | XR_ITS ---
WS: [email or web address] Exam: XR foot LT 2V [id number] Date/Time of Exam: 01/19/2024 11:19 AM Reason For Exam: Pain No obvious fracture or dislocation. No bone destruction noted. No soft tissue foreign bodies. The toe s are dorsiflexed. XR/XR foot LT 2V [id number] IMPRESSION: 1. No fracture or other significant finding. 2. The toes are dorsiflexed.
--- NOTE | 2024-01-19 11:09 | XR_ITS ---
WS: [email or web address] Exam: XR tibia fibula LT 2V [id number] Date/Time of Exam: 01/19/2024 11:19 AM Reason For Exam: Leg pain No acute fracture or dislocation. No soft tissue foreign bodies are seen. XR/XR tibia fibula LT 2V [id number] IMPRESSION: 1. No fracture or other significant finding.
[2024-01-19 11:45] LABS: Lyme AB Screen <0.90 index
--- NOTE | 2024-01-19 13:32 | P.CONIM_ITS ---
Providers/Reason For Consult 2 Consulting Physician/Specialty*: Lazaro Rascon D.P.M. Reason for Consult*: Cellulitis and left lower extremity pain Attending Physician: Seng Cade MD History of Present Illness History of Present Illness Joseph Aguila is a 63 year old nondiabetic male admitted to the hospital service for bacteremia secondary to cellulitis of the left leg having failed 3- day course of clindamycin outpatient. Patient recently moved to [place] from [place], has not yet established primary care locally. 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 He had a progression of redness, swelling and pain. At this point patient is showing improvement of his cellulitis however he still has pain in the leg, there is concern for possible musculoskeletal injury, patient has pain when he is weightbearing on the left leg. Of note patient has a history of venous ablation performed approximately 10 years ago due to venous insufficiency. Patient denies any subjective nausea, vomiting, fever, chills, shortness of breath or chest pain. Review of Systems 2 General: Reports: 10 or more systems reviewed and unremarkable except in HPI and below Const: Denies: fever(s) or chills Eyes: Denies: change in vision Card: Denies: chest pain or palpitations Resp: Denies: dyspnea or productive cough GI: Denies: abdominal pain, nausea or vomiting : Denies: flank pain Musc: Reports: extremity swelling, joint stiffness and deformity Skin/Breast: Reports: erythema, changes in skin color, dry skin, nail changes and change in hair; Denies: sores Neuro: Reports: numbness in extremities, sensory changes and difficulty walking Psych: Denies: suicidal ideation Endo: Denies: change in body appearance Nolberto/Lymph: Denies: tender lymph nodes Medications/Allergies Home Medications Medication Instructions Recorded Confirmed Last Taken Type lisinopril 5 mg tablet 5 mg PO DAILY 01/14/24 01/17/24 01/17/24 History clindamycin HCl 300 mg capsule 600 mg (2 x 300 mg) PO Q8H 7 days 01/15/24 01/17/24 01/17/24 Rx #42 caps hydrocodone 5 mg-acetaminophen 325 1 tab PO Q8H PRN pain #6 tabs 01/15/24 01/17/24 01/17/24 Rx mg tablet ketorolac 10 mg tablet 10 mg PO Q6H PRN pain #10 tabs 01/15/24 01/17/24 01/17/24 Rx Allergies Allergy/AdvReac Type Severity Reaction Status Date / Time codeine Allergy ALGY-Difficulty Verified 01/17/24 14:54 Breathing Current Medications Generic Name Dose Route Start Last Admin Trade Name Freq PRN Reason Stop Dose Admin Hydrocodone Bitart/Acetaminophen 1 tab 01/18/24 01:00 01/19/24 08:20 Hydrocodone-Acetaminophen 5-325 Mg Tablet PO 1 tab Q8H PRN Administration MODERATE PAIN Enoxaparin Sodium 40 mg 01/18/24 09:00 01/19/24 08:22 Enoxaparin 40 Mg/0.4 Ml Syringe SUBCUT 40 mg DAILY BENNY Administration Cefepime HCl 2,000 mg/ Sodium 50 mls @ 100 mls/hr 01/18/24 05:00 01/19/24 05:42 Chloride IV Infused Q12H BENNY Infusion Lisinopril 5 mg 01/18/24 09:00 01/19/24 08:22 Lisinopril 5 Mg Tablet PO 5 mg DAILY BENNY Administration Morphine Sulfate 2 mg 01/18/24 01:01 01/19/24 12:43 Morphine 4 Mg/Ml Sdv 1 Ml IVP 2 mg Q4H PRN Administration SEVERE PAIN Pantoprazole Sodium 40 mg 01/18/24 09:00 01/19/24 08:[address] 40 Mg Tablet PO 40 mg DAILY BENNY Administration Vitals/I&O/Wt Last Vital Signs Temp 98.1 F 01/19/24 11:31 Pulse 63 01/19/24 11:31 Resp 16 01/19/24 12:43 BP 113/65 01/19/24 11:31 Pulse Ox 94 01/19/24 11:31 O2 Del Method Room Air 01/19/24 11:31 01/18/24 01/19/24 01/19/24 22:59 06:59 14:59 Intake Total 590 / 1130 50 / 1180 600 / 600 Output Total 300 / 300 700 / 1000 Balance 290 / 830 -650 / 180 600 / 600 Weight last 48 hrs Weight 250 lb Weight 249 lb 9.6 oz Weight 248 lb 2 oz Weight 250 lb Physical Exam 2 Narrative: GENERAL: Patient is alert and oriented ?3 and in no acute distress. The following is a focused bilateral lower extremity exam. Patient's and son are at bedside. VASCULAR: Dorsalis pedis arteries palpable +2. Posterior tibial arteries palpable +2. Capillary refill time less than 3 seconds to the distal hallux bilaterally. Calf is supple and nontender proximally and distally. Pedal hair growth present. Edema to the left leg. NEUROLOGICAL: Protective sensation intact 10/10 sites, tested with [place] monofilament to bilateral feet. DERMATOLOGICAL: Erythema to the distal two thirds of left leg more impressive anterior, lateral and posteriorly sparing medially. Erythema has been subsiding from line of demarcation, no open or draining wound. MUSCULOSKELETAL: No crepitus with palpation of soft tissue of the left leg. Dorsiflexion, plantarflexion, eversion and inversion at the left foot and ankle are graded +5 pain-free without guarding. Patient has pain when attempting to bear weight at the left leg he localizes pain at the left lateral distal one third of the leg at area of cellulitis. Bilateral bunion deformities are reducible. Hammertoe deformities of digits 2 through 5 bilaterally are reducible. Data 01/19/24 05:09 01/19/24 05:09 Micro: Microbiology 01/17/24 18:37 Blood Culture - Preliminary Blood NEGATIVE TO DATE 01/17/24 18:25 Blood Culture - Preliminary Blood NEGATIVE TO DATE A&P Assessment and plan (1) Bacteremia: (2) Cellulitis of left lower leg: (3) Left leg pain: Plan Cellulitis left leg -Afebrile at this time, no leukocytosis.. -Improving with IV antibiotics -CT scan left leg negative for osseous injury, negative for soft tissue edema or foreign body, no abscess. -Lower extremity Doppler negative for deep vein thrombosis -Will apply Unna wrap to left lower extremity Patient likely experiencing pain in the left leg secondary to cellulitis, I do not appreciate a musculoskeletal abnormality or injury, patient may be weightbearing and work with physical therapy, will apply Unna wrap. Patient can follow-up outpatient in podiatry clinic for continued care after this hospitalization and monitoring of cellulitis and left leg pain moving forward. Consult Attestations 2 Medical Necessity Statement: Requires continued antibiotic treatment for left leg cellulitis having failed outpatient oral antibiotics. Coding Level of Care Code Acute Code for [facility] Fwd Diagnoses Bacteremia R78.81 Cellulitis of left lower leg L03.116 Left leg pain M79.605
[2024-01-20] VITALS (8 sets, daily range): BP systolic 131–143; BP diastolic 67–75; PULSE 60–72; RESP 15–17; TEMP 36.6–36.8; O2SAT 94–97
[2024-01-20 00:22] LABS: Add Urine Microscopic? NO
[2024-01-20 00:24] LABS: Bilirubin Urine Negative (Negative); Blood Urine Negative (Negative); Glucose Urine UA Negative (Normal); Ketones Urine Trace (Negative); Leukocyte Esterase Urine Negative (Negative); Nitrate Urine Negative (Negative); Protein Urine Negative (Negative); Specific Gravity, Urine 1.026 (1.005-1.030); Urine Appearance Clear (CLEAR); Urine Color Dark Yellow (Yellow); pH Urine 5.5 (5-7)
[2024-01-20 00:28] LABS: Add Urine Culture? No
[2024-01-20 00:29] LABS: Charge for UA Resulting for Rev
[2024-01-20] MEDS: HYDROcodone-acetaminophen 5-325 mg Tablet 1 TAB PO ×2 (02:03→15:57)
[2024-01-20] MEDS: cefepime 2,000 MG in sodium chloride 0.9% (plus) 50 ML 100 MG IV ×2 (04:04→17:39)
--- NOTE | 2024-01-20 07:54 | PM.PN ---
Subjective Subjective: Patient seen bedside this morning, denies any acute events overnight, continues to have pain when in a dependent position and weightbearing on the left leg. Denies rest pain. Patient denies any subjective nausea, vomiting, fever, chills, shortness of breath or chest pain. Vitals/I&O/Wt Last Vital Signs Temp 97.9 F 01/20/24 07:16 Pulse 61 01/20/24 07:16 Resp 16 01/20/24 07:16 BP 135/69 01/20/24 07:16 Pulse Ox 96 01/20/24 07:16 O2 Del Method Room Air 01/20/24 07:16 01/19/24 01/20/24 01/20/24 22:59 06:59 14:59 Intake Total 550 / 1150 750 / 1900 Output Total 0 / 0 400 / 400 Balance 550 / 1150 350 / 1500 Weight last 48 hrs Weight 253 lb 6.4 oz Weight 250 lb Physical Exam Narrative: GENERAL: Patient is alert and oriented ?3 and in no acute distress. The following is a focused bilateral lower extremity exam. Patient's and son are at bedside. VASCULAR: Dorsalis pedis arteries palpable +2. Posterior tibial arteries palpable +2. Capillary refill time less than 3 seconds to the distal hallux bilaterally. Calf is supple and nontender proximally and distally. Pedal hair growth present. Edema to the left leg. NEUROLOGICAL: Protective sensation intact 10/10 sites, tested with [place] [employer]hil monofilament to bilateral feet. DERMATOLOGICAL: Erythema to the distal two thirds of left leg more impressive anterior, lateral and posteriorly sparing medially. Erythema has been subsiding from line of demarcation, no open or draining wound. MUSCULOSKELETAL: No crepitus with palpation of soft tissue of the left leg. Dorsiflexion, plantarflexion, eversion and inversion at the left foot and ankle are graded +5 pain-free without guarding. Patient has pain when attempting to bear weight at the left leg he localizes pain at the left lateral distal one third of the leg at area of cellulitis. Bilateral bunion deformities are reducible. Hammertoe deformities of digits 2 through 5 bilaterally are reducible. Data 01/19/24 05:09 01/19/24 05:09 A&P Assessment and plan (1) Bacteremia: (2) Cellulitis of left lower leg: (3) Left leg pain: Plan Cellulitis left leg -Afebrile at this time, no leukocytosis.. -Improving with IV antibiotics -CT scan left leg negative for osseous injury, negative for soft tissue edema or foreign body, no abscess. -Lower extremity Doppler negative for deep vein thrombosis -Will apply Unna wrap to left lower extremity Patient likely experiencing pain in the left leg secondary to cellulitis, I do not appreciate a musculoskeletal abnormality or injury, patient may be weightbearing and work with physical therapy, will apply Unna wrap. Patient can follow-up outpatient in podiatry clinic for continued care after this hospitalization and monitoring of cellulitis and left leg pain moving forward. Interim update, Unna wrap applied, okay to take down for visualization of the left leg, should it be taken down I will apply a new dressing as needed. Attestations Medical Necessity Statement*: Cellulitis requiring continued antibiotics Coding Level of Care Code Acute Code for [facility] Fwd Diagnoses Bacteremia R78.81 Cellulitis of left lower leg L03.116 Left leg pain M79.605
[2024-01-20] MEDS: lisinopril 5 mg Tablet PO (09:47)
[2024-01-20] MEDS: pantoprazole DR 40 mg Tablet PO (09:49)
[2024-01-20] MEDS: enoxaparin 40 mg/0.4 mL Syringe SUBCUT (09:50)
--- NOTE | 2024-01-20 12:46 | P.PN_ITS ---
Subjective 2 Subjective: No problems overnight. The morning seen sitting up in chair. Working better with physical therapy. Able to transfer from bed to chair with a walker. States feeling slightly better. Denies any nausea, vomiting, headache. Has remained afebrile. Vitals/I&O/Wt Last Vital Signs Temp 98.1 F 01/20/24 11:28 Pulse 72 01/20/24 11:44 Resp 15 01/20/24 11:28 BP 142/74 01/20/24 11:28 Pulse Ox 95 01/20/24 11:44 O2 Del Method Room Air 01/20/24 11:44 01/19/24 01/20/24 01/20/24 22:59 06:59 14:59 Intake Total 550 / 1150 750 / 1900 118 / 118 Output Total 0 / 0 400 / 400 600 / 600 Balance 550 / 1150 350 / 1500 -482 / -482 Weight last 48 hrs Weight 114.94 kg Weight 113.398 kg Physical Exam 2 Narrative: General: No acute distress, AO x3 HEENT: PERRLA, pupils bilaterally equal and reactive, pallors not present Chest: Normal vesicular breath sounds, no added sounds, equal good air entry bilaterally CVS: S1-S2 regular, no murmurs, no tachycardia, no gallops, no rubs Abdomen: Soft, nontender, no organomegaly, bowel sounds present Neuro: No focal deficits, no facial deformity, AO x3, power 5/5 in all limbs Extremities: Left lower extremity cellulitis involving lower and mid calf extending both anteriorly and posteriorly. No swelling at ankle or knee joint. Foot is spared. Data 01/19/24 05:09 01/19/24 05:09 A&P Assessment and plan (1) Cellulitis of left lower leg: Cellulitis of the left lower extremity after sustaining trauma about 2 weeks ago. Failure to outpatient treatment with clindamycin. Follow-up blood culture. MRSA swab negative. A1c 5.6 Monitor for improvement over the next [address] of the left lower extremity showing mild to moderate subcutaneous edema along the anterior aspect of the mid to distal lower leg compatible with cellulitis. No organized collection or underlying osseous abnormality noted. Lower extremity Doppler negative for DVT. Continue with IV cefepime. Discontinue vancomycin. (2) Bacteremia: From January 15, 2024 emergency room visit blood culture positive for coag negative staph. While this may represent a contaminant, with ongoing cellulitis will need to repeat blood cultures to ensure clearance and assess if this is a true pathogen in this case. Repeat blood cultures on this admission so far negative. (3) Thrombocytopenia: Patient found stable. Most likely in setting of liver cirrhosis. No active bleeding at this time. (4) Hyperbilirubinemia: Total bilirubin at 4.2, increased from 2.4 on January 15, 2024. Unknown past baseline. Mildly elevated AST at 47, elevated alkaline phosphatase at 162. Will request records from primary care provider to a certain chronicity. Again may be related to her recent diagnosis of liver cirrhosis. Appreciate viral hepatitis panel. (5) Venous insufficiency: Plan Leg pain: Most on standing up or flexing the ankle joint. Appreciate podiatry recommendations. Concern for increased leg pain because of venous insufficiency leading to congestion of the skin and the cellulitic area while standing or vent dependent. Appreciate Unna wraps. Plan for continue Lovenox for now. X-ray negative for any fracture. Continue IV antibiotics for 24 more hours and plan to transition to oral antibiotics to finish overall 7 to 10-day of course with advised to follow-up with podiatry as an outpatient. Appreciate PT recommendations. DVT ppx: Lovenox 40mg s/c daily, closely monitor for any bleeding or falling platelets Cardiac diet Full code Attestations 2 Medical Necessity Statement*: Requires further hospitalization for management of left lower leg pain in setting of cellulitis of lower leg along with venous insufficiency, bacteremia Diagnoses Cellulitis of left lower leg L03.116 Bacteremia R78.81 Thrombocytopenia D69.6 Hyperbilirubinemia E80.6 Venous insufficiency I87.2
[2024-01-21] VITALS: BP 157/69; PULSE 73; RESP 17; TEMP 36.8
[2024-01-21] MEDS: HYDROcodone-acetaminophen 5-325 mg Tablet 1 TAB PO ×2 (00:19→11:07)
[2024-01-21 04:00] VITALS: BP 133/69; PULSE 65; RESP 16; TEMP 36.9; O2SAT 93
[2024-01-21] MEDS: cefepime 2,000 MG in sodium chloride 0.9% (plus) 50 ML 100 MG IV (04:37)
[2024-01-21 04:58] LABS: Basophils # 0.1 10^3/uL (0.0-0.1); Basophils % 1.2 %; Eosinophils # 0.2 10^3/uL (0.0-0.8); Eosinophils % 3.6 %; Hematocrit 41.8 % (37-53); Lymphocytes # 1.5 10^3/uL (0.8-4.8); Lymphocytes % 29.3 %; Mean Corpuscular HGB Conc 33.3 g/dL (30-55); Mean Corpuscular Hemoglobin 33.1 pg (27-33); Mean Corpuscular Volume 99.5 fl (82-101); Monocytes # 0.6 10^3/uL (0.2-0.9); Monocytes % 12.5 %; Neutrophils # 2.66 10^3/uL (1.8-7.7); Nucleated Red Blood Cells % 0 %; Platelet Count 125 10^3/cmm (157-399); Red Cell Distribution Width 12.3 % (12.1-15.1); White Blood Count 5.02 10^3/uL (3.29-11.43)
[2024-01-21 05:23] LABS: Alanine Aminotransferase 29 U/L (0-41); Alkaline Phosphatase 154 U/L (40-130); Anion Gap 12.1 (5-19); Aspartate Amino Transferase 56 U/L (0-40); Blood Urea Nitrogen 14 mg/dL (8-23); Carbon Dioxide 25 mmol/L (22-29); Chloride 107 mmol/L (98-107); Creatinine Clr Calc Pharmacy 108.0637; Globulin 3.7 g/dL (1.3-4.6); Glomerular Filtration Rate 85.5 mL/min (90-130); Glucose 99 mg/dL (65-115); Osmolality Calculated 291 mOsm/kg (285-295); Potassium 4.1 mmol/L (3.5-5.1); Sodium 140 mmol/L (136-145); Total Bilirubin 1.8 mg/dL (0.15-1.2); Total Protein 6.7 g/dL (6.6-8.7)
[2024-01-21 06:00] VITALS: PULSE 61
[2024-01-21 07:15] VITALS: BP 136/77; PULSE 62; RESP 15; TEMP 36.8; O2SAT 94
[2024-01-21] MEDS: lisinopril 5 mg Tablet PO (09:13)
[2024-01-21] MEDS: pantoprazole DR 40 mg Tablet PO (09:13)
[2024-01-21] MEDS: enoxaparin 40 mg/0.4 mL Syringe SUBCUT (09:13)
--- NOTE | 2024-01-21 10:37 | P.DS_ITS ---
Discharge Providers Date of Admission: 01/17/24 20:30 Date of Discharge: January 21, 2024 Attending Provider at Admission: Seng Cade MD Attending Provider at Discharge: Seng Cade MD Consults: Podiatry: Dr. Rascon Diagnoses at Discharge Discharge Diagnosis (1) Cellulitis of left lower leg: Status: Acute (2) Bacteremia: Status: Acute (3) Thrombocytopenia: Status: Acute (4) Hyperbilirubinemia: Status: Acute (5) Venous insufficiency: Status: Acute Reason for Visit Reason for Visit: pain to left leg Brief History: History as per HPI: Joseph Aguila is a 63 year old male with a past medical history of hypertension, prediabetes,recently diagnosed liver cirrhosis, who is presenting to the emergency room today with left lower extremity cellulitis. 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 He was not aware of how he got the injury until his son pointed it out. There was some bloody discharge at the time however while the injury healed, he started developing left lower leg swelling. He was started on Clindamycin 300mg TID, then dose increased to 600mg TID. additionally he received a dose of clindamycin 900 mg IV in the emergency room on the . He has had chills at home, has not measured fever. Clindamycin has not made any improvement to his cellulitis. Hospital Course Hospital Course Patient was admitted to the hospital further evaluation and management of cellulitis with concerns for failure to outpatient treatment. He was started on broad-spectrum IV antibiotics. On review it seems his blood culture 1 out of 4 bottles are positive on 01/14 hence repeat blood cultures were also drawn. During hospitalization his cultures remain negative. Patient continued to have out of proportion pain in his lower limb specially on standing up or having the leg on dependent position for which physical therapy evaluation was done and podiatry consultation was requested. He was advised to wear Unna wraps. It is believed his symptoms of pain on getting his leg dependent is most likely in the setting of venous insufficiency leading to venous congestion in the leg on standing up. Patient is advised to continue oral antibiotics with Augmentin and Levaquin for 7 more days advised to follow-up with podiatry team in next 1 week. Patient would most likely need to follow-up with vascular surgeon for further evaluation of venous insufficiency. Physical Exam Narrative: General: No acute distress, AO x3 HEENT: PERRLA, pupils bilaterally equal and reactive, pallors not present Chest: Normal vesicular breath sounds, no added sounds, equal good air entry bilaterally CVS: S1-S2 regular, no murmurs, no tachycardia, no gallops, no rubs Abdomen: Soft, nontender, no organomegaly, bowel sounds present Neuro: No focal deficits, no facial deformity, AO x3, power 5/5 in all limbs Extremities: Left lower extremity cellulitis involving lower and mid calf extending both anteriorly and posteriorly. No swelling at ankle or knee joint. Foot is spared. Discharge Data Studies Completed and Pending Completed Studies During Hospitalization Category Date Time Status CT lower leg LT w con [id number] Stat Cat Scan 01/17/24 20:27 Completed XR foot LT 2V [id number] Routine Exams 01/19/24 11:09 Completed XR tibia fibula LT 2V [id number] Routine Exams 01/19/24 11:09 Completed US venous duplex lower extremity LT [CV venous duplex Ultrasound 01/17/24 17:55 [place] [id number]] Stat Pending at discharge Category Date Time Status Bacterial Antigen Stat Lab 01/18/24 10:42 Received Blood Culture Stat Lab 01/17/24 18:37 Results Tick Panel AM LABS Lab 01/18/24 04:50 Results Radiology Impressions Venous Duplex 01/17/24 17:55 IMPRESSION: No sonographic evidence of deep vein thrombosis. Lower Extremity CT 01/17/24 20:27 IMPRESSION: 1. Mild to moderate subcutaneous edema with overlying skin thickening along the anterior aspect of the mid to distal lower leg, compatible with cellulitis. No organized collection. No soft tissue gas. No acute osseous abnormality. 2. Additional findings, as above. Foot X-Ray 01/19/24 11:09 IMPRESSION: 1. No fracture or other significant finding. 2. The toes are dorsiflexed. Tibia/Fibula X-Ray 01/19/24 11:09 IMPRESSION: 1. No fracture or other significant finding. Microbiology 01/17/24 18:37 Blood Blood Culture - Preliminary NEGATIVE TO DATE 01/17/24 18:25 Blood Blood Culture - Preliminary NEGATIVE TO DATE Laboratory Results WBC 5.02 10^3/uL (3.29-11.43) 01/21/24 04:22 RBC 4.20 10^6/uL (3.85-5.65) 01/21/24 04:22 Hgb 13.90 g/dL (11.27-16.99) 01/21/24 04:22 Hct 41.8 % (37-53) 01/21/24 04:22 MCV 99.5 fl (82-101) 01/21/24 04:22 MCH 33.1 pg (27-33) H 01/21/24 04:22 MCHC 33.3 g/dL (30-55) 01/21/24 04:22 RDW 12.3 % (12.1-15.1) 01/21/24 04:22 Plt Count 125 10^3/cmm (157-399) L 01/21/24 04:22 MPV 11.0 fL (7.4-10.4) H 01/21/24 04:22 Neut % (Auto) 53.0 % 01/21/24 04:22 Lymph % (Auto) 29.3 % 01/21/24 04:22 Esmeralda % (Auto) 12.5 % 01/21/24 04:22 Eos % (Auto) 3.6 % 01/21/24 04:22 Baso % (Auto) 1.2 % 01/21/24 04:22 Neut # (Auto) 2.66 10^3/uL (1.8-7.7) 01/21/24 04:22 Lymph # (Auto) 1.5 10^3/uL (0.8-4.8) 01/21/24 04:22 Esmeralda # (Auto) 0.6 10^3/uL (0.2-0.9) 01/21/24 04:22 Eos # (Auto) 0.2 10^3/uL (0.0-0.8) 01/21/24 04:22 Baso # (Auto) 0.1 10^3/uL (0.0-0.1) 01/21/24 04:22 Nucleated RBC % (auto) 0 % 01/21/24 04:22 Nucleated RBCs # 0.0 /100WBC 01/21/24 04:22 ESR 27 mm/hr (0-10) H 01/17/24 15:14 PT 14.40 SECONDS (12.1-14.9) 01/18/24 04:50 INR 1.08 (0.8-1.2) 01/18/24 04:50 Sodium 140 mmol/L (136-145) 01/21/24 04:22 Potassium 4.1 mmol/L (3.5-5.1) 01/21/24 04:22 Chloride 107 mmol/L (98-107) 01/21/24 04:22 Carbon Dioxide 25 mmol/L (22-29) 01/21/24 04:22 Anion Gap 12.1 (5-19) 01/21/24 04:22 BUN 14 mg/dL (8-23) 01/21/24 04:22 Creatinine 0.9 mg/dL (0.7-1.2) 01/21/24 04:22 GFR Calculation 85.5 mL/min (90-130) L 01/21/24 04:22 Glucose 99 mg/dL (65-115) 01/21/24 04:22 Estimat Average Glucose 114 01/18/24 04:50 Hemoglobin A1c 5.6 % (4.0-6.0) 01/18/24 04:50 Calculated Osmolality 291 mOsm/kg (285-295) 01/21/24 04:22 Calcium 9.0 mg/dL (8.5-10.5) 01/21/24 04:22 Magnesium 2.0 mg/dL (1.7-2.3) 01/21/24 04:22 Iron 63 ug/dL (59-158) 01/18/24 04:50 TIBC 251 mcg/dl 01/18/24 04:50 % Saturation 25.0 % (20-50) 01/18/24 04:50 Unsat Iron Binding 188 ug/dL (112-347) 01/18/24 04:50 Total Bilirubin 1.8 mg/dL (0.15-1.2) H 01/21/24 04:22 AST 56 U/L (0-40) H 01/21/24 04:22 ALT 29 U/L (0-41) 01/21/24 04:22 Alkaline Phosphatase 154 U/L (40-130) H 01/21/24 04:22 Total Protein 6.7 g/dL (6.6-8.7) 01/21/24 04:22 Albumin 3.0 g/dL (3.5-5.2) L 01/21/24 04:22 Globulin 3.7 g/dL (1.3-4.6) 01/21/24 04:22 Triglycerides 133 mg/dL (0-150) 01/19/24 05:09 Cholesterol 166 mg/dL (0-200) 01/19/24 05:09 LDL Cholesterol, Calc 96 mg/dL (50-129) 01/19/24 05:09 Total VLDL Cholesterol 27 mg/dL (0-30) 01/19/24 05:09 HDL Cholesterol 43 mg/dL (60-100) L 01/19/24 05:09 Cholesterol/HDL Ratio 3.86 mg/dL (1.0-5.00) 01/19/24 05:09 Vitamin B12 428 pg/mL (232-1245) 01/18/24 04:50 Folate 7.7 ng/mL (4.5-32.2) 01/19/24 05:09 Procalcitonin 0.13 ng/mL (0-0.5) 01/18/24 04:50 TSH 2.75 uIU/mL (0.27-4.20) 01/18/24 04:50 Urine Color Dark yellow (Yellow) A 01/19/24 23:49 Urine Appearance Clear (CLEAR) 01/19/24 23:49 Urine pH 5.5 (5-7) 01/19/24 23:49 Ur Specific [place] 1.026 (1.005-1.030) 01/19/24 23:49 Urine Protein Negative (Negative) 01/19/24 23:49 Urine Glucose (UA) Negative (Normal) 01/19/24 23:49 Urine Ketones Trace (Negative) 01/19/24 23:49 Urine Blood Negative (Negative) 01/19/24 23:49 Urine Nitrate Negative (Negative) 01/19/24 23:49 Urine Bilirubin Negative (Negative) 01/19/24 23:49 Urine Urobilinogen 1.0 mg/dL (Negative) 01/19/24 23:49 Ur Leukocyte Esterase Negative (Negative) 01/19/24 23:49 Amorphous Sediment Not Reportable 01/19/24 23:49 Nasal MRSA (PCR) Not detected (Negative) 01/18/24 10:47 Lyme Ab (Western Blot) <0.90 index 01/18/24 04:50 Hepatitis A IgM Ab Non-reactive (Nonreactive) 01/18/24 04:50 Hep Bs Antigen Non-reactive (Nonreactive) 01/18/24 04:50 Hep Bs Antibody < 3.5 (11.5-1000) L 01/18/24 04:50 Hep B Core Total Ab Non-reactive (Nonreactive) 01/18/24 04:50 Hepatitis C Antibody Non-reactive (Nonreactive) 01/18/24 04:50 Vitals Last Vital Signs Temp 98.3 F 01/21/24 07:15 Pulse 62 01/21/24 07:15 Resp 15 01/21/24 07:15 BP 136/77 01/21/24 07:15 Pulse Ox 94 01/21/24 07:15 O2 Del Method Room Air 01/21/24 07:15 Discharge Plan Discharge Patient Disposition: Home Condition: Stable Prescriptions: New amoxicillin-pot clavulanate 875-125 mg tablet 1 tab PO Q12H Qty: 14 0RF levofloxacin 500 mg tablet 500 mg PO Q24H 7 Days Qty: 7 0RF Continued lisinopril 5 mg Tablet 5 mg PO DAILY hydrocodone-acetaminophen 5-325 mg tablet 1 tab PO Q8H PRN (Reason: pain) Qty: 6 0RF ketorolac 10 mg tablet 10 mg PO Q6H PRN (Reason: pain) Qty: 10 0RF Rx Instructions: maximum total duration of 5 days from all oral, intranasal, or parenteral formulations Discontinued clindamycin HCl 300 mg capsule 600 mg PO Q8H 7 Days Qty: 42 0RF Discharge Orders: Discharge Order (Routine); Ordered 01/21/24 Ordered By: Seng Cade Other Ambulatory Orders: DME: [facility] (Order) Location: None Selected Ordered By: Seng Cdae Referrals: Lazaro Rascon DPM [Physician] - 7-10 days (We have notified your physician's clinic of the need for a follow-up appointment to be scheduled. If you have not heard from them within the next 2 business days, please call them directly. ) Daisy Taylor FNP-C [Nurse Practitioner] - 01/27/24 1:20 pm (Nurse practitioner now located at [facility] in [place]. ) Discharge Diet: Regular Discharge Activity: Resume usual activity and Increase activity as tolerated Patient Instructions: Amoxicillin/Clavulanate Potassium (By mouth), Levofloxacin (By mouth), Peripheral Vascular Disease (GEN), Opioid Safety Activity Restrictions/Additional Instructions: Continue Augmentin and Levaquin which are the antibiotics for next 7 days. Follow-up with Dr. Rascon's office within next 1 week. You will need to follow-up with vascular surgeon as an outpatient for further evaluation and management of venous insufficiency Discharge Attestations Time Spent in Discharge Care*: greater than 30 min Specific Discharge Activities: educating patient, discussing with pcp/other providers, discussing with medical case worker/social workers/dc planners, documenting/other paperwork and evaluating patient/reviewing data Quality Metrics Clinical Quality Measures [ No reported AMI, CVA or VTE this stay] Coding Level of Care Code 08590 Total time (in minutes) for Discharge: 60 Diagnoses Cellulitis of left lower leg L03.116 Bacteremia R78.81 Thrombocytopenia D69.6 Hyperbilirubinemia E80.6 Venous insufficiency I87.2
[2024-01-21 11:02] VITALS: BP 122/68; PULSE 68; RESP 16; TEMP 36.7; O2SAT 95
[2024-01-21 15:14] VITALS: BP 122/68; PULSE 68; RESP 16; TEMP 36.7; O2SAT 95
[2024-01-23 22:44] LABS: RMSF IGG DETECTED; RMSF IGM NOT DETECTED
== END 2024-01-21 15:16 | disposition home or self-care (01) | DRG 603 ==
LOC: ER 20:29 → MEDSURG 21:01
PROVIDERS: Emergency Medicine; Student in an Organized Health Care Education/Training Program; Admitting Provider Student in an Organized Health Care Education/Training Program; Emergency Provider Family Medicine; Visit Provider Student in an Organized Health Care Education/Training Program
DX: L03.116 Cellulitis of left lower limb (principal); R78.81 Bacteremia; I99.8 Other disorder of circulatory system; I10 Essential (primary) hypertension; R73.03 Prediabetes; K74.60 Unspecified cirrhosis of liver
CPT/HCPCS: 36415; 73590; 73620; 73701; 80053; 80061; 81003; 82607; 82746; 83036; 83540; 83550; 83735; 84145; 84443; 85025; 85610; 85651; 86403; 86618; 86666; 86705; 86706; 86709; 86757; 86803; 87040; 87340; 93971; 96365; 96367; 96372; 97116; 97161; 97530; 99285; J0692; J1650; J2270; J2405; J2543; J3370; J7050

== ENCOUNTER → 2024-01-26 12:41 | Outpatient (BNVA) | payer OTHER, SELFPAY | PROVIDERS: PCP Nurse Practitioner Family; Visit Provider Nurse Practitioner Family | DX: L03.116 Cellulitis of left lower limb (principal) | CPT/HCPCS: 80053; 85025 ==

== ENCOUNTER → 2024-07-31 14:43 | Outpatient (BNVA) | payer OTHER, SELFPAY | PROVIDERS: PCP Nurse Practitioner Family; Visit Provider Nurse Practitioner Family | DX: I10 Essential (primary) hypertension (principal); G62.9 Polyneuropathy, unspecified; Z12.5 Encounter for screening for malignant neoplasm of prostate | CPT/HCPCS: 80053; 80061; 82306; 82607; 83036; 83735; 84443; 85025; G0103 ==

== ENCOUNTER → 2024-08-02 14:44 | Outpatient (BNVA) | payer OTHER, SELFPAY | PROVIDERS: PCP Nurse Practitioner Family; Visit Provider Nurse Practitioner Family | DX: I10 Essential (primary) hypertension (principal); G62.9 Polyneuropathy, unspecified; E55.9 Vitamin D deficiency, unspecified | CPT/HCPCS: 80053; 80061; 82306; 82607; 83735; 84443; 85025; G0103 ==

== ENCOUNTER → 2024-08-09 10:58 | Outpatient (BNVA) | payer OTHER, SELFPAY | PROVIDERS: PCP Nurse Practitioner Family; Visit Provider Nurse Practitioner Family | DX: D69.6 Thrombocytopenia, unspecified (principal) | CPT/HCPCS: 85025 ==